=== PATIENT | male | born 1975 | race Caucasian/White ===

== ENCOUNTER 2020-05-09 18:49 | Emergency (ER) | payer SELFPAY ==
[2020-05-09 19:07] VITALS: BP 134/81; PULSE 92; RESP 18; TEMP 36.2; O2SAT 98; BMI 26.4
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
[2020-05-09] MEDS: HYDROcodone-acetaminophen 10-325 mg Tablet 1 TAB PO (19:33)
[2020-05-09 20:13] VITALS: BP 122/86; PULSE 68; RESP 16; O2SAT 96
== END 2020-05-09 20:15 | disposition home or self-care (01) ==
PROVIDERS: Emergency Provider Nurse Practitioner Family
DX: S20.212A Contusion of left front wall of thorax, initial encounter (principal); Y00.XXXA Assault by blunt object, initial encounter
CPT/HCPCS: 12345; 71101; 99281; 99283

== ENCOUNTER 2025-04-06 10:48 | Emergency (ER) | payer MEDICAID, SELFPAY ==
[2025-04-06 10:51] VITALS: BP 125/69; PULSE 97; RESP 16; TEMP 36.6; O2SAT 95; BMI 25.7
--- NOTE | 2025-04-06 10:52 | XR_ITS ---
WS: [id number] XR chest 1V portable [id number] REASON FOR EXAM: chest pain FINDINGS: The heart is at the upper limits of normal in size. The chest is otherwise unchanged compared to the previous examination of 05/09/2020. Moderate tortuosity and ectasia of the thoracic aorta. Calcified granulomatous disease bilaterally. No acute pulmonary parenchymal or pleural abnormality is identified. Moderate degenerative spondylosis in the thoracic spine. XR/XR chest 1V portable [id number] IMPRESSION: No acute chest abnormality.
--- NOTE | 2025-04-06 10:52 | ECG_ITS ---
[facility] Test Date: 2025-04-06 Pat Name: Joseph Clayton Department: Room: Gender: Male Rail Track Layer: : 1975 Requested By: Pietro Pillai Order Number: [id number] Neha MD: Claritza Mccloud M.D. Measurements Intervals Porter Rate: 96 P: 28 VA: 160 QRS: 76 QRSD: 112 T: 50 QT: 336 QTc: 427 Interpretive Statements SINUS RHYTHM WITH FREQUENT VENTRICULAR PREMATURE COMPLEXES INCOMPLETE RIGHT BUNDLE BRANCH BLOCK [90+ ms QRS DURATION, TERMINAL R IN V1/V2, 40+ ms S IN I/aVL/V4/V5/V6] ABNORMAL RHYTHM ECG No previous ECG available for comparison Electronically Signed On 04-08-2025 17:33:14 EVAPORATIVE COOLER INSTALLER by Claritza Mccloud M.D. [email or web address]
--- NOTE | 2025-04-06 10:58 | W.ED.CHESTPA ---
HPI - Chest Pain General: Chief Complaint: Chest Pain Stated Complaint: Chest Pain, SOB Time Seen by Provider: 04/06/25 10:51 History of Present Illness: 50-year-old male presents to the emergency room with complaint of chest pain that began while he was at rest. Patient is a inpatient rehab for methamphetamine use his last use was 19 days ago. Used for nearly 40 years no known history of arrhythmias or coronary artery disease. While at rest he began to have chest discomfort its resolved he did not receive any nitro. States in the last for 5 months he has had a couple of other episodes of chest discomfort but it was always while he was using. He has not noticed anything that exacerbates or relieves to be on the drug use with the previous episodes. Patient is a smoker. He also notes he has a large left inguinal hernia it has been present for years no acute worsening pain today. No abdominal pain or vomiting. Patient denies any previous episodes of septicemia or valvular disease that he is aware of. Associated symptoms: Deny abdominal pain, dyspnea or fever(s) Related Data Previous Rx's ?Medication ?Instructions ?Recorded aspirin 81 mg tablet,delayed 81 mg PO DAILY #30 tabs 04/06/25 release Allergies Allergy/AdvReac Type Severity Reaction Status Date / Time No Known Allergies Allergy Verified 04/06/25 10:58 Review of Systems Const: Denies: fever(s) or chills Card: Denies: chest pain Resp: Denies: dyspnea GI: Denies: abdominal pain : Denies: dysuria, urinary frequency or urinary urgency Musc: Denies: neck pain or back pain Skin/Breast: Denies: rash Physical Exam Const: GENERAL APPEARANCE: cooperative ORIENTATION/CONSCIOUSNESS: Yes awake, Yes oriented to person, Yes oriented to place and Yes oriented to time HENMT: COMMON NORMALS: normocephalic, atraumatic and hearing grossly normal bilaterally HEAD & SCALP: normocephalic and atraumatic Resp: COMMON NORMALS: normal respiratory effort, No retractions, No use of accessory muscles and clear to auscultation bilaterally AUSCULTATION: clear to auscultation bilaterally Cardio: COMMON NORMALS: regular rate, regular rhythm and No murmurs present (Cardio) RATE: regular rate RHYTHM: regular rhythm GI: COMMON NORMALS: Soft to palpation and No hepatosplenomegaly present AUSCULTATION: Yes normoactive bowel sounds PALPATION: Yes Soft to palpation, No Tenderness to palpation present (GI), No Guarding due to palpation present (GI) and Yes No hepatosplenomegaly present Extremity: COMMON NORMALS: normal to inspection, capillary refill normal, no clubbing, cyanosis or edema, no calf tenderness and no pedal edema Neuro: SENSORIUM/ORIENTATION: Yes oriented to person, Yes oriented to place and Yes oriented to time Skin: COMMON NORMALS: no rashes or lesions noted GENERAL SKIN EXAM: no rashes or lesions noted Course Vital Signs: Vital signs: Vital Signs Temperature 97.8 F 04/06/25 10:51 Pulse Rate 87 04/06/25 12:48 Respiratory Rate 21 H 04/06/25 12:33 Blood Pressure 114/78 04/06/25 12:48 Pulse Oximetry 99 04/06/25 12:48 Oxygen Delivery Me thod Room Air 04/06/25 10:51 MDM - Chest Pain Medical Decision Making Medical decision making Social determinants: Patient recovering addict is currently in inpatient I reviewed the patient's medical record. I reviewed the patient's current home meds. Alternate historians: None Differential diagnosis: Acute coronary syndrome, arrhythmias, valvular disease, reflux Lab Review: Troponins undetectable below 6 at baseline and 1 hour. CBC and chemistries normal Imaging:Chest x-ray no acute finding Assessment of risk Level of risk: Low Hospitalization considerations: Potential for admission based on results of workup for ACS. Reexamination: No further symptoms Assessment and plan: Labs x-ray and troponins negative. Suspect reflux as a cause. Will discharge patient home have him follow-up with his primary care doctor recommend aspirin daily and also start on Pepcid 20 mg twice a day [id number]. Reviewed findings with patient Lab Data 04/06/25 11:02 04/06/25 11:02 Radiology Impressions Chest X-Ray 04/06/25 10:52 IMPRESSION: No acute chest abnormality. Laboratory Results WBC 8.13 10^3/uL (3.29-11.43) 04/06/25 11:02 RBC 4.44 10^6/uL (3.85-5.65) 04/06/25 11:02 Hgb 12.10 g/dL (11.27-16.99) 04/06/25 11:02 Hct 37.7 % (37-53) 04/06/25 11:02 MCV 84.9 fl (82-101) 04/06/25 11:02 MCH 27.3 pg (27-33) 04/06/25 11:02 MCHC 32.1 g/dL (30-55) 04/06/25 11:02 RDW 15.8 % (12.1-15.1) H 04/06/25 11:02 Plt Count 253 10^3/cmm (157-399) 04/06/25 11:02 MPV 9.1 fL (7.4-10.4) 04/06/25 11:02 Neut % (Auto) 53.9 % 04/06/25 11:02 Lymph % (Auto) 24.4 % 04/06/25 11:02 Anson % (Auto) 13.5 % 04/06/25 11:02 Eos % (Auto) 6.9 % 04/06/25 11:02 Baso % (Auto) 0.6 % 04/06/25 11:02 Neut # (Auto) 4.38 10^3/uL (1.8-7.7) 04/06/25 11:02 Lymph # (Auto) 2.0 10^3/uL (0.8-4.8) 04/06/25 11:02 Anson # (Auto) 1.1 10^3/uL (0.2-0.9) H 04/06/25 11:02 Eos # (Auto) 0.6 10^3/uL (0.0-0.8) 04/06/25 11:02 Baso # (Auto) 0.1 10^3/uL (0.0-0.1) 04/06/25 11:02 Nucleated RBC % (auto) 0 % 04/06/25 11:02 Nucleated RBCs # 0.0 /100WBC 04/06/25 11:02 Sodium 136 mmol/L (136-145) 04/06/25 11:02 Potassium 4.3 mmol/L (3.5-5.1) 04/06/25 11:02 Chloride 101 mmol/L (98-107) 04/06/25 11:02 Carbon Dioxide 22 mmol/L (22-29) 04/06/25 11:02 Anion Gap 17.3 (5-19) 04/06/25 11:02 BUN 21 mg/dL (6-20) H 04/06/25 11:02 Creatinine 0.6 mg/dL (0.7-1.2) L 04/06/25 11:02 GFR Calculation 141.5 mL/min (90-130) H 04/06/25 11:02 Glucose 135 mg/dL (65-115) H 04/06/25 11:02 Calculated Osmolality 287 mOsm/kg (285-295) 04/06/25 11:02 Calcium 9.0 mg/dL (8.5-10.5) 04/06/25 11:02 Total Bilirubin 0.2 mg/dL (0.15-1.2) 04/06/25 11:02 AST 17 U/L (0-40) 04/06/25 11:02 ALT 21 U/L (0-41) 04/06/25 11:02 Alkaline Phosphatase 70 U/L (40-130) 04/06/25 11:02 Troponin T Baseline < 6 ng/L (0-15) 04/06/25 11:02 Troponin T 60 Minute < 6.0 ng/L (0-15) 04/06/25 11:56 Delta Troponin T 0 ABS# (0-10) 04/06/25 11:56 Total Protein 6.1 g/dL (6.6-8.7) L 04/06/25 11:02 Albumin 4.0 g/dL (3.5-5.2) 04/06/25 11:02 Globulin 2.1 g/dL (1.3-4.6) 04/06/25 11:02 All radiology interpretation(s) finalized by discharge EKG Data EKG 1: I personally reviewed and interpreted this EKG as follows: Interpretation: EKG 04/06/2025 1053 sinus rhythm with PVCs ventricular rate of 96 TX interval 160 QTc 390. Incomplete bundle branch block noted no acute ST changes noted. No EKG available for comparison. EKG 2: I personally reviewed and interpreted this EKG as follows: Interpretation: EKG 04/06/2025 1147 sinus rhythm rate of 98 TX interval 158 QTc 423 incomplete bundle branch block. No significant change from previous EKG no acute ST changes Discharge Plan Discharge Patient Disposition: Home Clinical Impression: Atypical chest pain, Hernia, inguinal, left Condition: Stable Prescriptions: New aspirin 81 mg tablet,delayed release (DR/EC) 81 mg PO DAILY Qty: 30 0RF Discharge Orders: Discharge ED (Routine); Ordered 04/06/25 Ordered By: Pietro Sloan Discharge Diet: Usual diet Discharge Activity: Resume usual activity Patient Instructions: Chest Pain (ED), Opioid Safety, Pain Management, Patient Portal & Alicia Instructions Activity Restrictions/Additional Instructions: Thank you for choosing [facility] for your healthcare needs today. It is very important that you follow up as instructed or that you return to the Emergency Department should you have concerns or if your condition changes or worsens in any way. Emergency department visits are focused on emergent conditions, in some cases you may require further evaluation on an outpatient basis. You are seen emergency room with complaints of chest pain. Your cardiac enzymes and EKG did not show any acute abnormality. We also noted during exam that you have a large left inguinal hernia that should be addressed at some time as well. There are no signs of acute coronary syndrome at this time can be discharged home we do recommend take a baby aspirin daily. Case management make arrangements for follow-up with cardiology and with general surgery. (Please note that included in your discharge packet is information concerning opioid safety and pain management. This information is given to all patients were discharged from the ER regardless of their discharge diagnosis or the medicines they usually take or are prescribed.) Print Language: Trinidadian Coding Level of Care Code ED Director Of Perioperative Services for Paco Aguilar Heart Score HEART Score Components History: Slightly Suspicous EKG: Normal Age: 45-64 yrs Risk Factors: No Risk Factors Known Troponin: Baseline Trop <16 ng/L HEART Score RESULT HEART Score: 1
[2025-04-06 11:06] LABS: Hematocrit 37.7 % (37-53); Hemoglobin 12.10 g/dL (11.27-16.99); Mean Corpuscular HGB Conc 32.1 g/dL (30-55); Mean Corpuscular Hemoglobin 27.3 pg (27-33); Mean Corpuscular Volume 84.9 fl (82-101); Nucleated Red Blood Cells % 0 %; Platelet Count 253 10^3/cmm (157-399); Red Blood Count 4.44 10^6/uL (3.85-5.65); White Blood Count 8.13 10^3/uL (3.29-11.43)
[2025-04-06 11:26] LABS: Alanine Aminotransferase 21 U/L (0-41); Albumin Level 4.0 g/dL (3.5-5.2); Alkaline Phosphatase 70 U/L (40-130); Aspartate Amino Transferase 17 U/L (0-40); Blood Urea Nitrogen 21 mg/dL (6-20); Calcium 9.0 mg/dL (8.5-10.5); Carbon Dioxide 22 mmol/L (22-29); Chloride 101 mmol/L (98-107); Globulin 2.1 g/dL (1.3-4.6); Glucose 135 mg/dL (65-115); Osmolality Calculated 287 mOsm/kg (285-295); Sodium 136 mmol/L (136-145); Total Protein 6.1 g/dL (6.6-8.7)
[2025-04-06 11:27] LABS: Troponin(5th) Baseline < 6 ng/L (0-15)
[2025-04-06 11:34] LABS: Anion Gap 17.3 (5-19); Potassium 4.3 mmol/L (3.5-5.1)
--- NOTE | 2025-04-06 11:52 | ECG_ITS ---
[facility] Date: 2025-04-06 Pat Name: Joseph Clayton Department: Room: Gender: Male Food Checker: : 1975 Requested By: Pietro Pillai Order Number: [id number] Neha MD: Claritza Mccloud M.D. Measurements Intervals [place] Rate: 98 P: 31 OK: 158 QRS: 119 QRSD: 115 T: 75 QT: 331 QTc: 423 Interpretive Statements SINUS RHYTHM INCOMPLETE RIGHT BUNDLE BRANCH BLOCK [90+ ms QRS DURATION, TERMINAL R IN V1/V2, 40+ ms S IN I/aVL/V4/V5/V6] LEFT POSTERIOR FASCICULAR BLOCK [QRS AXIS > 109, INFERIOR Q] Compared to ECG 04/06/2025 10:53:36 Left posterior fascicular block now present Ventricular premature complex(es) no longer present Electronically Signed On 04-08-2025 18:02:30 BROADCAST PRODUCER by Claritza Mccloud M.D. [id number]
[2025-04-06 12:33] VITALS: BP 114/66; PULSE 97; RESP 21; O2SAT 99
[2025-04-06 12:48] VITALS: BP 114/78; PULSE 87; O2SAT 99
== END 2025-04-06 13:17 | disposition home or self-care (01) ==
PROVIDERS: Emergency Provider Family Medicine
DX: R07.89 Other chest pain (principal); K40.90 Unilateral inguinal hernia, without obstruction or gangrene, not specified as recurrent
CPT/HCPCS: 36415; 71045; 80053; 84484; 85025; 93005; 99285